=== PATIENT | male | born 1955 | race Caucasian/White ===

== ENCOUNTER 2016-10-17 12:44 | Observation (INO) | payer MEDICARE, SELFPAY ==
[~2016-10-17] VITALS: Ht 182.9 cm; Wt 113.0 kg
[2016-10-17 13:02] LABS: BASO # 0.1 10_X3_uL (0.0-0.1); BASO % 0.5 % (0.2-1.2); EOS # 0.4 10_X3_uL (0.0-0.5); EOS % 3.6 % (0.8-7.0); GRAN # 5.5 10_X3_uL (1.8-5.4); GRAN % 47.7 % (34.0-67.9); HEMATOCRIT 41.2 % (40-51); HEMOGLOBIN 14.3 g/dL (13.7-17.5); LYMPH # 4.5 10_X3_uL (1.3-3.6); MEAN CORPUSCULAR HEMOGLOBIN 31.5 pg (27.0-33.0); MEAN CORPUSCULAR HGB CONC 34.7 g/dL (32.0-36.0); MEAN CORPUSCULAR VOLUME 90.7 fL (79-92); MEAN PLATELET VOLUME 9.3 fl (7.5-11.5); MONO # 1.1 10_X3_uL (0.3-0.8); MONO % 9.2 % (5.3-12.2); PLATELET COUNT 313 x10_3/uL (163-337); RED BLOOD COUNT 4.54 x10_6/uL (4.6-6.1); RED CELL DISTRIBUTION WIDTH 13.1 % (11.6-14.4); WHITE BLOOD COUNT 11.5 x10_3/uL (4.2-9.1)
[2016-10-17 13:19] LABS: ALBUMIN 4.2 gm/dL (3.4-5.0); ALKALINE PHOSPHATASE 56 U/L (50-136); ALT/SGPT 12 U/L (7.53-40.17); AST/SGOT 17 U/L (6.66-35.34); BILIRUBIN,TOTAL 0.24 mg/dL (0.0-1.0); BLOOD UREA NITROGEN 21 mg/dL (7-18); CALCIUM 8.9 mg/dL (8.7-10.7); CARBON DIOXIDE 24 mmol/L (21-32); CREATINE KINASE 205 U/L (35-232); CREATININE 1.1 mg/dL (0.6-1.3); GLUCOSE,RANDOM 112 mg/dL (70-99); SODIUM 133 mmol/L (136-145)
[2016-10-17 15:08] LABS: INR 1.1 (0.9-1.1); PARTIAL THROMBOPLASTIN TIME 25.9 SECONDS (21.3-29.3); PROTHROMBIN TIME (PATIENT) 11.3 SECONDS (9.9-11.1)
[2016-10-17 19:41] LABS: CKMB 5.1 ng/ml (0.0-5.0); TROP-I < 0.30 NG/ML (0.00-0.30)
[2016-10-18 03:00] LABS: CKMB 4.8 ng/ml (0.0-5.0)
[2016-10-18 03:11] LABS: TROP-I < 0.30 NG/ML (0.00-0.30)
[2016-10-18 07:10] LABS: CKMB 4.4 ng/ml (0.0-5.0)
[2016-10-18 07:13] LABS: TROP-I < 0.30 NG/ML (0.00-0.30)
== END 2016-10-19 11:39 | disposition home or self-care (01) ==
LOC: ER 12:44 → MS 13:54
PROVIDERS: Internal Medicine; ADMIT Family Medicine
DX: R07.2 Precordial pain (principal); M79.602 Pain in left arm; I10 Essential (primary) hypertension; I51.9 Heart disease, unspecified; F17.210 Nicotine dependence, cigarettes, uncomplicated; Z79.899 Other long term (current) drug therapy; Z79.82 Long term (current) use of aspirin; Z88.8 Allergy status to other drugs, medicaments and biological substances
CPT/HCPCS: 36415; 71010; 80053; 80061; 82550; 82553; 85025; 85610; 85730; 93005; 93041; 96372; 99070; 99284; 99285-25; G0378